=== PATIENT | male | born 1995 | race Two or more races ===

== ENCOUNTER 2020-02-06 23:19 | Emergency (ER) | payer SELFPAY ==
[~2020-02-06] VITALS: Ht 177.8 cm; Wt 83.9 kg
--- NOTE | 2020-02-06 23:30 | NUR ---
PT BIBSELF C/O MID BACK PAIN S/P HEAVY LIFTING TODAY. PT DENIES DYSURIA, HEMATURIA. AMBULATORY WITH STEADY GAIT. PT AAOX4. RESPIRATIONS EVEN AND UNLABORED. SKIN INTACT. NO ACUTE DISTRESS NOTED AT THIS TIME. WILL CONTINUE TO MONITOR. WAITING MD JAY.
[2020-02-06 23:55] VITALS: BP 116/74
--- NOTE | 2020-02-06 23:55 | NUR ---
Patient discharged to home in stable condition. Written and verbal after care instructions given. Patient verbalizes understanding of instruction.Pt ambulatory with a steady gait
[2020-02-07] MEDS ORDERED: KETOROLAC TROMETHAMINE INJ 60 MG/2 ML VIAL IM ONE
== END 2020-02-06 23:56 | disposition home or self-care (01) ==
LOC: ER 23:22
DX: M54.9 Dorsalgia, unspecified (principal); F17.200 Nicotine dependence, unspecified, uncomplicated